=== PATIENT | female | born 1990 | race Caucasian/White ===

== ENCOUNTER 2019-05-07 00:10 | Inpatient (IN) | payer BC ==
[2019-05-07 01:33] LABS: Urine Benzodiazepine Screen None Detected (None Detect); Urine Opiates Screen None Detected (None Detect)
[2019-05-07] MEDS ORDERED: Lactated Ringers 1000 ML Bag* 1,000 ML IV ONE ×2 (08:49→09:59)
[2019-05-07] MEDS ORDERED: Buffered Lidocaine 1% SYRIN* 1 ML/SYRINGE INTRADERM ONE (08:49)
[2019-05-07 08:55] LABS: Hematocrit 41 % (35-47); Hemoglobin 13.7 g/dL (12.0-16.0); Mean Corpuscular HGB Conc 34 g/dL (31-36); Mean Corpuscular Hemoglobin 29 pg (27-31); Mean Corpuscular Volume 87 fL (80-97); Mean Platelet Volume 9.7 fL (7.4-10.4); Platelet Count 211 10^3/uL (150-450); Red Blood Count 4.71 10^6 /uL (3.70-4.87); Red Cell Distribution Width 14 % (10-15); White Blood Count 11.6 10^3/uL (3.5-10.8)
[2019-05-07] MEDS ORDERED: Oxytocin in LR* 20 UNITS/1,000 ML BAG IVPB SCH (09:00)
[2019-05-07] MEDS: Lactated Ringers 1000 ML Bag* 1,000 ML IV SCH ×3 (09:16→13:14)
--- NOTE | 2019-05-07 09:22 | HP ---
General Information - Reason for Visit contractions since wednesday. on and off all night - General Information Maternal Age: 28 Grav: 1 Para: 0 SAB: 0 IEA: 0 Estimated Due Date: 05/07/19 Determined By: LMP Maternal Blood Type and Rh: O Negative - Results this Serology/RPR Result: Non-Reactive Rubella Result: Immune HBsAg Result: Negative HIV Result: Negative GBS Culture Result: Negative Past Medical History Pertinent Past Medical History: Non-Contributory Pertinent Past Surgical History: None Pertinent Family History: Non-Contributory - Antepartal Records Antepartal Records: Reviewed, Uncomplicated Review of Systems Constitutional: Uncomfortable CV Complaint: No Respiratory: Shortness of Breath: No Gastrointestinal: Nausea Genitourinary: No Bleeding, No Leaking Fluid Musculoskeletal: Contractions Neurological: No Headache Movement: Normal Exam Allergies/Adverse Reactions: Allergies No Known Allergies Allergy (Verified 05/07/19 02:12) Lab Values - Entire Visit: Laboratory Tests 05/07/19 05/07/19 05/07/19 01:00 08:43 08:43 WBC 11.6 H RBC 4.71 Hgb 13.7 Hct 41 MCV 87 MCH 29 MCHC 34 RDW 14 Plt Count 211 MPV 9.7 Urine Opiates Screen None detected Ur Barbiturates Screen None detected Ur Phencyclidine Scrn None detected Ur Amphetamines Screen None detected U Benzodiazepines Scrn None detected Urine Cocaine Screen None detected U Cannabinoids Screen None detected Blood Type O Negative - Measurements Height: 5 ft 3 in Weight: 152 lb Weight in lbs: 152.378788 Body Mass Index (BMI): 26.9 Pre- Weight: 136 lb Weight Gained This : 16 lbs and 0 ozs - Exam Breast: Breast Exam Deferred Extremities: No Edema Heart: Normal Rhythm/Heart Sounds HEENT: No Significant Findings Lungs: Clear Bilaterally Reflexes: DTR 2+ Targeted Exam Findings Cervical Exam: 3cm Effacement: 80% Station: -1 Presenting Part: Vertex Membrane Status: Intact EFM Findings - External Monitor Findings Baseline Heart Rate: 135 External Monitor Findings: Accelerations Present, Variability Moderate Contractions: Regular, Moderate, 45-90 Seconds Assessment/Plan - Assessment prolonged latent phase - Plan Plan: Admit - Anticipate Vaginal Delivery - discussed prolonged latent phase and recommend augmentation once she is more comfortable. pt with decerlation with exam and was hydrated in preparation. do not recommend therapeutic rest as she is at due date and progressing
[2019-05-07] MEDS ORDERED: OBEPIDURAL* 250 ML EPIDURAL ONE (09:32)
[2019-05-07] MEDS ORDERED: Famotidine TAB* 20 MG PO PRN (09:59)
[2019-05-07] MEDS ORDERED: Sodium Citrate/Citric Acid* 15 ML UDC PO PRN (09:59)
[2019-05-07] MEDS ORDERED: Phenylephrine 40 MCG/ML SYRINGE IV PUSH PRN ×2 (09:59→10:59)
[2019-05-07] MEDS ORDERED: OBEPIDURAL* 250 ML EPIDURAL SCH (10:00)
[2019-05-07] MEDS ORDERED: Lactated Ringers 1000 ML Bag* 1,000 ML IV SCH ×2 (10:00→18:00)
[2019-05-07] MEDS: Phenylephrine 40 MCG/ML SYRINGE IV PUSH PRN ×3 (10:08→10:32)
[2019-05-07] MEDS ORDERED: Witch Hazel PAD* JAR TOPICAL PRN (17:18)
[2019-05-07] MEDS ORDERED: Glycerin ADULT SUPP PR PRN (17:18)
[2019-05-07] MEDS ORDERED: RHO D Immune Globulin (HUMAN)* 300 MCG = 1,500 I.U. INJ IM ONE (17:18)
[2019-05-07] MEDS ORDERED: Dibucaine 1% 28.35 GM TUBE PR PRN (17:18)
[2019-05-07] MEDS ORDERED: Simethicone TAB* 80 MG TAB.CHEW PO SCH (17:30)
[2019-05-07] MEDS: Ibuprofen TAB* 600 MG PO PRN (17:59)
[2019-05-07] MEDS ORDERED: Phenylephrine 10 MG/ML VIAL* 1 ML VIAL ONE ×2 (18:02→18:04)
[2019-05-07] MEDS ORDERED: Lidocaine 1% INJ* 10 MG/ML 30 ML SDV ONE (18:02)
--- NOTE | 2019-05-07 18:30 | PROCNOTE ---
[facility] OB: Delivery Note - Delivery A Date of : 05/07/19 Time of : 16:43 Weight at : 5 lb 10 oz Score 1 Minute: 9 Score 5 Minutes: 9 Gestational Age in Weeks and Days at Delivery: 40 Weeks and 0 Days Delivery Method: Spontaneous Vaginal Labor: Spontaneous Did Patient attempt ?: N/A, No Previous Amniotic Fluid: Clear Anesthesia/Analgesia: CEI for Labor Delivered By: Kota Stephen - Nursery Level of Nursery: Regular/Bedside - Perineum Perineal Injury: 2nd Degree - Events Delivery Events of Note: Pitocin During Labor, Protracted/Long Labor, Supplemental O2 to Mother - Additional Delivery Notes Additional Delivery Notes: pt became fully dilated with deep variable deceleration deep into the 60's .good recovery . pt pushed well x3 with rapid delivery. repair with 3-0 vicryl
[2019-05-07] MEDS: Acetaminophen TAB* 325 MG PO PRN (20:49)
[2019-05-07] MEDS: Docusate CAP* 100 MG PO SCH (20:49)
[2019-05-08] MEDS: Ibuprofen TAB* 600 MG PO PRN ×4 (00:08→21:06)
[2019-05-08] MEDS: Acetaminophen TAB* 325 MG PO PRN ×2 (04:42→12:23)
[2019-05-08 06:40] LABS: ABS Eosinophils 0.1 10^3/ul (0-0.6); ABS Lymphocytes 1.2 10^3/ul (1.0-4.8); ABS Monocytes 0.7 10^3/ul (0-0.8); ABS Neutrophils 8.3 10^3/ul (1.5-7.7); Eosinophil % 1.3 %; Hematocrit 32 % (35-47); Hemoglobin 10.8 g/dL (12.0-16.0); Lymphocyte % 11.8 %; Mean Corpuscular HGB Conc 35 g/dL (31-36); Mean Corpuscular Hemoglobin 30 pg (27-31); Mean Corpuscular Volume 87 fL (80-97); Mean Platelet Volume 9.7 fL (7.4-10.4); Platelet Count 134 10^3/uL (150-450); Red Blood Count 3.61 10^6 /uL (3.70-4.87); Red Cell Distribution Width 14 % (10-15); White Blood Count 10.4 10^3/uL (3.5-10.8)
[2019-05-08] MEDS: Docusate CAP* 100 MG PO SCH ×3 (08:14→21:06)
[2019-05-08] MEDS: Ferrous Gluconate TAB* 324 MG TAB PO SCH ×2 (09:30→21:59)
[2019-05-09] MEDS: Acetaminophen TAB* 325 MG PO PRN (00:05)
[2019-05-09] MEDS: Docusate CAP* 100 MG PO SCH (07:20)
[2019-05-09] MEDS: Ibuprofen TAB* 600 MG PO PRN (07:20)
[2019-05-09 07:45] VITALS: BP 113/75
--- NOTE | 2019-05-09 09:25 | PTEDU ---
Patient Name: SINAN SANTOYO SINAN SANTOYO selected video: Never Ever Shake a Baby to view on 05/09/2019 at 9:23:46 AM from [facility] [id number]
--- NOTE | 2019-05-09 09:36 | PTEDU ---
Patient Name: SINAN SANTOYO SINAN SANTOYO selected video: BBOB: Nurturing Your Gorgeous &Growing Baby by to view on [facility]/09/2019 at 9[facility]34:[id number]
== END 2019-05-09 12:47 | disposition home or self-care (01) | DRG 560 ==
LOC: MCHOBOUT 00:10 → MCHOB 08:43
PROVIDERS: ADMIT Obstetrics & Gynecology; ATTEND Obstetrics & Gynecology
PROC: 10E0XZZ Delivery of Products of Conception, External Approach (ICD-10-PCS; principal; 2019-05-07)
PROC: 10907ZC Drainage of Amniotic Fluid, Therapeutic from Products of Conception, Via Natural or Artificial Opening (ICD-10-PCS; 2019-05-07)
PROC: 0KQM0ZZ Repair Perineum Muscle, Open Approach (ICD-10-PCS; 2019-05-07)
DX: O63.0 Prolonged first stage (of labor) (principal); Z37.0 Single live birth; O70.1 Second degree perineal laceration during delivery; Z3A.40 40 weeks gestation of pregnancy
CPT/HCPCS: 36415; 80307; 85025; 85027; 86850; 86900; 86901; A9270-GY

== ENCOUNTER 2021-09-07 09:52 | Inpatient (IN) ==
[2021-09-07] MEDS ORDERED: Buffered Lidocaine 1% SYRIN 1 ml INTRADERM ONE (10:41)
[2021-09-07] MEDS ORDERED: Lactated Ringers 1000 ml BAG 1,000 ML IV ONE ×2 (10:41→14:12)
[2021-09-07] MEDS ORDERED: Lactated Ringers 1000 ml BAG 1,000 ML IV SCH ×4 (11:00→23:45)
[2021-09-07 11:36] LABS: ABS Eosinophils 0.2 10^3/ul (0-0.6); ABS Lymphocytes 1.4 10^3/ul (1.0-4.8); ABS Monocytes 0.7 10^3/ul (0-0.8); ABS Neutrophils 7.8 10^3/ul (1.5-7.7); Eosinophil % 1.6 %; Hematocrit 38 % (35-47); Hemoglobin 13.4 g/dL (12.0-16.0); Lymphocyte % 13.7 %; Mean Corpuscular HGB Conc 35 g/dL (31-36); Mean Corpuscular Hemoglobin 31 pg (27-31); Mean Corpuscular Volume 87 fL (80-97); Mean Platelet Volume 10.2 fL (7.4-10.4); Nucleated Red Blood Cells % 0.1; Platelet Count 204 10^3/uL (150-450); Red Blood Count 4.39 10^6 /uL (3.70-4.87); Red Cell Distribution Width 13 % (10-15)
[2021-09-07 11:40] LABS: Urine Appearance Cloudy; Urine Bilirubin Negative (Negative); Urine Blood 2+ (Negative); Urine Color Yellow; Urine Glucose Negative (Negative); Urine Ketones Negative (Negative); Urine Nitrite Negative (Negative); Urine Protein Negative (Negative); Urine Specific Gravity 1.012 (1.002-1.030); Urine Urobilinogen Negative (Negative)
[2021-09-07 11:47] LABS: Urine Bacteria 1+ (Absent); Urine Red Blood Cell Trace(0-2/hpf) (Absent); Urine Squamous Epithelial Cell Present (Absent); Urine White Blood Cell Trace(0-5/hpf) (Absent)
[2021-09-07 12:03] LABS: Urine Benzodiazepine Screen None Detected (None Detect); Urine Cannabinoids Screen None Detected (None Detect); Urine Opiates Screen None Detected (None Detect)
[2021-09-07] MEDS ORDERED: OBEPIDURAL 250 ML EPIDURAL ONE (13:25)
[2021-09-07] MEDS ORDERED: Sodium Citrate/Citric Acid LIQ 15 ML UDC PO PRN (14:12)
[2021-09-07] MEDS ORDERED: Lactated Ringers 1000 ml BAG 500 ML IV PRN (14:12)
[2021-09-07] MEDS ORDERED: EPHEDrine (Pressors) 50 MG/ML VIAL IV PUSH PRN ×2 (14:12)
[2021-09-07] MEDS ORDERED: Phenylephrine 40 mcg/mL 10mL (400mcg) SYRINGE IV PUSH PRN ×2 (14:12)
[2021-09-07] MEDS ORDERED: OBEPIDURAL 250 ML EPIDURAL SCH (15:00)
[2021-09-07] MEDS ORDERED: Oxytocin in LR 20 UNITS/1,000 ML BAG IVPB ONE (19:50)
[2021-09-07] MEDS ORDERED: Glycerin ADULT 2.4 gm SUPP PR PRN (23:40)
[2021-09-07] MEDS ORDERED: Oxytocin in LR 20 UNITS/1,000 ML BAG IVPB SCH (23:45)
[2021-09-08] MEDS: Dibucaine 1% OINT 28.35 GM TUBE PR PRN ×2 (00:10→17:10)
[2021-09-08] MEDS: Witch Hazel PAD JAR TOPICAL PRN ×2 (00:10→17:10)
[2021-09-08 07:40] LABS: ABS Eosinophils 0.1 10^3/ul (0-0.6); ABS Lymphocytes 1.3 10^3/ul (1.0-4.8); ABS Neutrophils 12.8 10^3/ul (1.5-7.7); Eosinophil % 0.4 %; Hematocrit 32 % (35-47); Lymphocyte % 8.5 %; Mean Corpuscular HGB Conc 35 g/dL (31-36); Mean Corpuscular Hemoglobin 31 pg (27-31); Mean Corpuscular Volume 88 fL (80-97); Platelet Count 147 10^3/uL (150-450); Red Blood Count 3.56 10^6 /uL (3.70-4.87); Red Cell Distribution Width 13 % (10-15); White Blood Count 15.1 10^3/uL (3.5-10.8)
[2021-09-09 08:07] VITALS: BP 103/70
== END 2021-09-09 18:00 | disposition home or self-care (01) | DRG 560 ==
LOC: MCHOBOUT 09:52 → MCHOB 10:36
PROVIDERS: ADMIT Obstetrics & Gynecology; ATTEND Obstetrics & Gynecology

== ENCOUNTER 2024-01-11 08:32 | Inpatient (IN) ==
[2024-01-11] MEDS ORDERED: Lidocaine 1% VIAL 10 MG/ML 30 ML VIAL INJ PRN (09:59)
[2024-01-11] MEDS: miSOPROStol 100 mcg TAB VAGINAL ONE (10:14)
[2024-01-11 14:06] LABS: Urine Benzodiazepine Screen None Detected (None Detect); Urine Cannabinoids Screen None Detected (None Detect); Urine Opiates Screen None Detected (None Detect)
[2024-01-11] MEDS: miSOPROStol 100 mcg TAB ONE (14:41)
[2024-01-11] MEDS: Lactated Ringers 1000 ml BAG 1,000 ML IV SCH ×2 (18:11→22:00)
[2024-01-11] MEDS: Oxytocin in LR 20,000 MILLI.UNIT/1,000 ML BAG IV SCH (18:11)
[2024-01-11 18:15] LABS: ABS Eosinophils 0.2 10^3/uL (0.0-0.5); ABS Lymphocytes 1.6 10^3/uL (1.0-4.8); ABS Monocytes 0.5 10^3/uL (0.0-0.9); ABS Neutrophils 4.7 10^3/uL (1.5-7.6); ABS Nucleated RBC 0.01 10^3/ul; Eosinophil % 3.3 %; Hemoglobin 12.5 g/dL (11.5-14.3); Lymphocyte % 22.3 %; Mean Corpuscular Hemoglobin 30.7 pg (27-33); Mean Corpuscular Hgb Conc 34.6 g/dL (31-36); Mean Corpuscular Volume 88.7 fL (80-97); Mean Platelet Volume 9.1 fL (7.5-11.2); Nucleated Red Blood Cells % 0.1 %/100WBC (0.0-0.8); Platelet Count 210 10^3/uL (150-450); Red Blood Count 4.06 10^6/uL (3.63-4.92); Red Cell Distribution Width 14.3 % (12-17)
[2024-01-11] MEDS: Buffered Lidocaine 1% SYRIN 1 ml INTRADERM ONE (19:01)
[2024-01-11] MEDS: OBEPIDURAL (200 ML) 200 ML EPIDURAL SCH (19:50)
[2024-01-11] MEDS ORDERED: Phenylephrine 40 mcg/mL 10mL (400mcg) SYRINGE IV PUSH PRN ×2 (19:58)
[2024-01-11] MEDS ORDERED: Sodium Citrate/Citric Acid LIQ 15 ML UDC PO PRN (19:58)
[2024-01-11] MEDS: Lactated Ringers 1000 ml BAG 1,000 ML IV ONE ×2 (19:59→20:18)
[2024-01-11] MEDS: OBEPIDURAL (200 ML) 200 ML EPIDURAL ONE (20:18)
[2024-01-11] MEDS: Lidocaine 1.5% EPI 1:200,000 30 ML SDV ONE (20:18)
[2024-01-11 20:51] LABS: Urine Appearance Clear; Urine Bilirubin Negative (Negative); Urine Blood Negative (Negative); Urine Color Light-Yellow; Urine Glucose Negative (Negative); Urine Ketones Negative (Negative); Urine Nitrite Negative (Negative); Urine Protein Negative (Negative); Urine Specific Gravity 1.012 (1.002-1.030); Urine Urobilinogen Negative (Negative)
[2024-01-12] MEDS: Oxytocin in LR 20,000 MILLI.UNIT/1,000 ML BAG IV SCH (01:15)
[2024-01-12] MEDS ORDERED: RHO D Immune Globulin (HUMAN) 300 MCG = 1,500 I.U. INJ IM PRN (01:49)
[2024-01-12] MEDS ORDERED: Glycerin ADULT 2.4 gm SUPP PR PRN (01:49)
[2024-01-12] MEDS ORDERED: Lactated Ringers 1000 ml BAG 1,000 ML IV SCH (02:00)
[2024-01-12] MEDS: Dibucaine 1% OINT 28.35 GM TUBE PR PRN (02:40)
[2024-01-12] MEDS: Witch Hazel PAD JAR TOPICAL PRN (02:40)
[2024-01-13 06:52] LABS: ABS Eosinophils 0.2 10^3/uL (0.0-0.5); ABS Lymphocytes 1.4 10^3/uL (1.0-4.8); ABS Monocytes 0.5 10^3/uL (0.0-0.9); ABS Neutrophils 4.5 10^3/uL (1.5-7.6); ABS Nucleated RBC 0.01 10^3/ul; Eosinophil % 2.8 %; Hematocrit 33.3 % (35-45); Hemoglobin 11.6 g/dL (11.5-14.3); Mean Corpuscular Hemoglobin 30.8 pg (27-33); Mean Corpuscular Hgb Conc 34.7 g/dL (31-36); Mean Corpuscular Volume 88.9 fL (80-97); Nucleated Red Blood Cells % 0.2 %/100WBC (0.0-0.8); Platelet Count 149 10^3/uL (150-450); Red Blood Count 3.75 10^6/uL (3.63-4.92); White Blood Count 6.6 10^3/uL (3.8-11.8)
[2024-01-13 08:16] VITALS: BP 119/79
== END 2024-01-13 12:47 | disposition home or self-care (01) | DRG 560 ==
LOC: MCHOBOUT 08:32 → MCHOB 10:00
PROVIDERS: ADMIT Obstetrics & Gynecology; ATTEND Obstetrics & Gynecology